=== PATIENT | female | born 1980 | race Caucasian/White ===

== ENCOUNTER 2017-12-22 19:36 | Emergency (ER) | payer BC ==
[2017-12-22] MEDS ORDERED: Adacel Vial IM ONE ×2 (19:53→20:10)
[2017-12-22] MEDS ORDERED: BACIGUENT PACKET TP ONE (19:56)
[2017-12-22] MEDS ORDERED: MOTRIN 600 MG PO ONE (19:56)
[2017-12-22 20:01] VITALS: BP 144/84; PULSE 103; O2SAT 98
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
[2017-12-22] MEDS ORDERED: BACIGUENT PACKET ONE (20:10)
[2017-12-22] MEDS ORDERED: MOTRIN 600 MG ONE (20:10)
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
== END 2017-12-22 21:38 | disposition home or self-care (01) ==
LOC: ED 19:36
DX: S00.03XA Contusion of scalp, initial encounter (principal); S00.05XA Superficial foreign body of scalp, initial encounter; S16.1XXA Strain of muscle, fascia and tendon at neck level, initial encounter; S76.011A Strain of muscle, fascia and tendon of right hip, initial encounter; S80.01XA Contusion of right knee, initial encounter; S00.01XA Abrasion of scalp, initial encounter; M25.532 Pain in left wrist; M79.675 Pain in left toe(s); M25.551 Pain in right hip; M79.661 Pain in right lower leg; V43.62XA Car passenger injured in collision with other type car in traffic accident, initial encounter
CPT/HCPCS: 72040; 72170; 73110; 73502; 73590; 73630; 90471; 90715; 99284; L3908; A9270-GY